=== PATIENT | female | born 1995 | race Caucasian/White ===

== ENCOUNTER 2017-07-20 20:57 | Emergency (ER) | payer OTHER ==
--- NOTE | 2017-07-20 23:39 | ED Physician Documentation ---
PD HPI UPPER EXT INJURY - Stated complaint Stated Complaint: R HAND LAC - Chief complaint Chief Complaint: Laceration - History obtained from History obtained from: Patient - History of Present Illness Location: Right, Finger (middle) Type of injury: Laceration (was reaching into a box and got lac from a staple/ nail in it.) Timing - onset: Today Timing - details: Abrupt onset, Still present Worsened by: Moving, Palpating Associated symptoms: No: Weakness, Numbness Similar symptoms before: Has not had sx before Recently seen: Not recently seen Review of Systems Neurologic: denies: Focal weakness, Numbness, Near syncope PD PAST MEDICAL HISTORY - Past Medical History Past Medical History: No Cardiovascular: None Respiratory: None Neuro: None Endocrine/Autoimmune: None GI: None FINANCIAL CENTER MANAGER: None : None HEENT: None Psych: None Musculoskeletal: None Derm: None - Past Surgical History Past Surgical History: No - Present Medications Home Medications: Ambulatory Orders Medication Instructions Recorded Confirmed Control 01/20/16 - Allergies Allergies/Adverse Reactions: Allergies Allergy/AdvReac Type Severity Reaction Status Date / Time No Known Drug Allergies Allergy Verified 07/20/17 21:11 - Social History Does the pt smoke?: No Smoking Status: Never smoker Does the pt drink ETOH?: No Does the pt have substance abuse?: No - Immunizations Immunizations are current?: Yes Immunizations: TDAP current <10years PD ED PE NORMAL - Vitals Vital signs reviewed: Yes - General General: Alert and oriented X 3, No acute distress, Well developed/nourished - Derm Derm: Normal color, Warm and dry - Extremities Extremities: Other (right middle finger with laceration dorsal proximal phalanx near PIP, which opens with ROM. No FB nor tendon involvement. ) Results - Vitals Vitals: Oxygen O2 Source Room air Procedures - Laceration (location) right middle finger Length in cm: 1.5 Wound type: Curved Neurovascular status: Sensory intact, Motor intact, Vascular intact Tendon involvement: No: Tendon Injury Anesthesia: Lidocaine 1% Skin layer closure: Nylon, Running, Size #-0 - enter number (4) Other: Patient tolerated well, No complications, Neurovascular intact, Dressing applied, Tetanus UTD Complexity: Simple PD MEDICAL DECISION MAKING - ED course Complexity details: considered differential, d/w patient Departure - Departure Disposition: 01 Home, Self Care Clinical Impression: Finger laceration Qualifiers: Encounter type: initial encounter Finger: middle finger Damage to nail status: without damage Foreign body presence: without foreign body Laterality: right Qualified Code(s): S61.212A - Laceration without foreign body of right middle finger without damage to nail, initial encounter Condition: Stable Record reviewed to determine appropriate education?: Yes Instructions: ED Laceration Hand Follow-Up: MANUELA Smith [Provider Group] Comments: It is okay to wash and shower. Clean off the wound twice a day with soap and water, or peroxide and water. Apply some antibiotic ointment to it to keep it moist. Also to watch for signs of infection such as purulence, redness or increasing pain. Return to your primary care or the ER at the specified time for suture removal. Suture removal 10-12 days. Discharge Date/Time: 07/21/17 00:01
[2017-07-20] MEDS ORDERED: BACITRACIN OINT TOP ONE (23:59)
[2017-07-21 00:01] VITALS: BP 112/68
== END 2017-07-21 00:01 | disposition home or self-care (01) ==
LOC: ED 20:57
DX: S61.212A Laceration without foreign body of right middle finger without damage to nail, initial encounter (principal); W26.8XXA Contact with other sharp object(s), not elsewhere classified, initial encounter
CPT/HCPCS: 12001; 99282; 99283; A9270

== ENCOUNTER 2017-08-23 17:48 | Emergency (ER) | payer OTHER ==
[2017-08-23 17:55] VITALS: BP 111/67
--- NOTE | 2017-08-23 18:08 | ED Physician Documentation ---
History of Present Illness - Stated complaint Stated Complaint: VOMITING/D - Chief complaint Chief Complaint: Abd Pain - History obtained from History obtained from: Patient (pt reports that she has had nausea and vomiting and loose stool for approx 18 hours. 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 HEENT: None Psych: None Musculoskeletal: None Derm: None - Past Surgical History Past Surgical History: No - Present Medications Home Medications: Ambulatory Orders Medication Instructions Recorded Confirmed Ondansetron Odt [Zofran] 4 mg TL Q6H PRN #10 tablet 08/23/17 - Allergies Allergies/Adverse Reactions: Allergies Allergy/AdvReac Type Severity Reaction Status Date / Time No Known Drug Allergies Allergy Verified 08/23/17 17:55 - Social History Does the pt smoke?: No Smoking Status: Never smoker Does the pt drink ETOH?: No Does the pt have substance abuse?: No - Immunizations Immunizations are current?: Yes Immunizations: TDAP current <10years - POLST Patient has POLST: No Results - Vitals Vitals: Vital Signs - 24 hr 08/23/17 17:51 Temperature 36.6 C Heart Rate 78 Respiratory 16 Rate Blood Pressure 111/67 O2 Saturation 98 Oxygen O2 Source Room air - Labs Labs: Laboratory Tests 08/23/17 08/23/17 17:58 18:10 Ur Specific [place] 1.020 Urine HCG, Qual NEGATIVE Influenza A (Rapid) Negative Influenza B (Rapid) Negative Influenza Types A,B Ag - PD MEDICAL DECISION MAKING - ED course Complexity details: d/w patient ED course: pt is non-toxic. flu and HCG neg. no indication for IV fluids. benign ABD exam. will send home with zofran. pt to follow up with her medical. Departure - Departure Disposition: 01 Home, Self Care Clinical Impression: Vomiting Condition: Good Instructions: ED Nausea Vomiting Follow-Up: primary, care provider [Other] Prescriptions: Ondansetron Odt [Zofran] 4 mg TL Q6H PRN #10 tablet PRN Reason: Nausea / Vomiting Comments: increase your fluid intake. Follow up with your medical tomorrow for any further work related restrictions. Forms: Activity restrictions
[2017-08-23 18:30] LABS: HCG UR QUAL NEGATIVE
== END 2017-08-23 19:07 | disposition home or self-care (01) ==
LOC: ED 17:48
DX: R11.2 Nausea with vomiting, unspecified (principal); R19.7 Diarrhea, unspecified; R10.84 Generalized abdominal pain
CPT/HCPCS: 81025; 87275; 87276; 99283

== ENCOUNTER 2019-06-06 22:23 | Emergency (ER) | payer OTHER ==
--- NOTE | 2019-06-07 01:37 | ED Physician Documentation ---
PD HPI UPPER EXT INJURY - Stated complaint Stated Complaint: CUT FINGER - Chief complaint Chief Complaint: Laceration - History obtained from History obtained from: Patient - History of Present Illness Location: Left, Finger (middle) Type of injury: Laceration (from glass while cooking dinner) Where injury occurred: Home Timing - onset: Today Timing - details: Abrupt onset, Still present Worsened by: Moving, Palpating Associated symptoms: Other (still bleeding despite direct pressure). 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 : None HEENT: None Psych: None Musculoskeletal: None Derm: None - Past Surgical History Past Surgical History: No - Allergies Allergies/Adverse Reactions: Allergies Allergy/AdvReac Type Severity Reaction Status Date / Time No Known Drug Allergies Allergy Verified 06/06/19 22:46 - Social History Does the pt smoke?: No Smoking Status: Never smoker Does the pt drink ETOH?: No Does the pt have substance abuse?: No - Immunizations Immunizations are current?: Yes Immunizations: TDAP current <10years - POLST Patient has POLST: No PD ED PE NORMAL - Vitals Vital signs reviewed: Yes - General General: Alert and oriented X 3, No acute distress, Well developed/nourished - Derm Derm: Normal color, Warm and dry - Extremities Extremities: Other (The left middle finger shows a laceration at the middle phalanx. It does open up a bit with finger flexion extension. There is slight oozing of bleeding still. There is no obvious deep structures involved. She has good sensation at the tip and normal movement for flexion and extension at the IP joints. The laceration is on the radial side dorsal aspect.) - Neuro Neuro: No motor deficit, No sensory deficit Results - Vitals Vitals: Oxygen O2 Source Room air Procedures - Laceration (location) left middle finger Length in cm: 1.5 Wound type: Linear, Into subcut fat, Clean. No: Into muscle Neurovascular status: Sensory intact, Motor intact, Vascular intact Tendon involvement: Tendon intact Anesthesia: Lidocaine 2% Wound Preparation: Wound explored, To the base. No: FB identified Skin layer closure: Nylon, Interrupted, Size #-0 - enter number (4) Other: Patient tolerated well, No complications, Neurovascular intact, Dressing applied, Tetanus UTD Complexity: Simple PD MEDICAL DECISION MAKING - ED course Complexity details: considered differential, d/w patient Departure - Departure Disposition: 01 Home, Self Care Clinical Impression: Finger laceration Qualifiers: Encounter type: initial encounter Finger: middle finger Damage to nail status: without damage Foreign body presence: without foreign body Laterality: left Qualified Code(s): S61.213A - Laceration without foreign body of left middle finger without damage to nail, initial encounter Condition: Stable Record reviewed to determine appropriate education?: Yes Instructions: ED Laceration Hand Comments: It is okay to wash and shower. Clean off the wound twice a day with soap and water, or peroxide and water. Apply some antibiotic ointment to it to keep it moist. Also to watch for signs of infection such as purulence, redness or increasing pain. Return to your primary care or the ER at the specified time for suture removal. Suture removal 9 to 10 days. Tylenol ibuprofen as needed for pains. Regular activity is okay. Discharge Date/Time: 06/07/19 02:29
[2019-06-07 02:24] VITALS: BP 111/71
== END 2019-06-07 02:29 | disposition home or self-care (01) ==
LOC: ED 22:23
DX: S61.213A Laceration without foreign body of left middle finger without damage to nail, initial encounter (principal); W25.XXXA Contact with sharp glass, initial encounter; Y93.G3 Activity, cooking and baking; Y92.009 Unspecified place in unspecified non-institutional (private) residence as the place of occurrence of the external cause
CPT/HCPCS: 12001; 99281